=== PATIENT | male | born 1995 | race Two or more races ===

== ENCOUNTER → 2019-08-10 | Outpatient (CLI) | payer BC | END | disposition home or self-care (01) | LOC: LAB 13:33 | PROVIDERS: ATTEND Hospitalist | DX: Z11.3 Encounter for screening for infections with a predominantly sexual mode of transmission (principal); R11.0 Nausea; Z72.51 High risk heterosexual behavior | CPT/HCPCS: 36415; 86592; 86703; 86704; 86706; 86708; 86803; 87340 ==